=== PATIENT | female | born 1935 | race Caucasian/White ===

== ENCOUNTER 2016-08-29 17:05 | Emergency (ER) | payer MEDICARE, OTHER ==
[~2016-08-29] VITALS: Ht 165.1 cm; Wt 66.1 kg
[~2016-08-29 17:05] MED LIST: DICL75 PO; DIPH2%T PO; FURO20TA PO; QUIN20 PO; ZOCO40TA PO
[2016-08-29 17:13] VITALS: BP 170/82; PULSE 65; RESP 16; TEMP 98.2; O2SAT 96
[2016-08-29] MEDS ORDERED: ASPI81TA11 PO (17:28)
[2016-08-29] MEDS ORDERED: ACCU20TA3 PO (17:37)
[2016-08-29] MEDS ORDERED: FURO20TA PO (17:37)
[2016-08-29] MEDS ORDERED: SIMV20TA PO (17:37)
--- NOTE | 2016-08-29 17:52 | PD ---
HPI Chief Complaint: Fall Time Seen by Provider: 17:28 Travel History International Travel<30 days: No Contact w/Intl Traveler<30days: No Traveled to known affect area: No History of Present Illness HPI 81-year-old female presents to emergency department with a chief complaint of left rib pain. Patient reports she was loading groceries into her car yesterday and slipped on wet ground falling onto the left side. She reports she did not hit her head, no LOC, not on anticoagulants. Patient reports she has anterior lateral left rib pain pain is worse with with inspiration and coughing. She also reports she has bruising to the left elbow but no pain and full range of motion of the joint. Patient denies chest pain, shortness breath , abdominal pain, nausea or vomiting, or headache. Patient reports past medical history of hypertension and dyslipidemia. PFSH Past Medical History Hx Anticoagulant Therapy: Yes (ASA 81 MG DAILY) Cancer: Yes ( HODGKINS LYMPHOMA) High Cholesterol: Yes Diabetes: No Diminished Hearing: Yes ([place] BAND LEFT ) Hypertension: Yes Immunizations Current: Yes Thyroid Disease: No Tetanus Vaccination: Unknown ?: Not Menopausal: Yes : 6 Para: 6 Past Surgical History Other Surgery: Yes (KNEE AND BIOPSY OF LYMPHOMA) Social History Alcohol Use: No Tobacco Use: No (QUIT 1979) Substance Use: No Allergies-Medications (Allergen,Severity, Reaction): Coded Allergies: Penicillin (Verified Allergy, Unknown, PT STS THROAT CLOSES, 08/29/16) Reported Meds & Prescriptions Reported Meds & Active Scripts Active Reported Furosemide 20 Mg Tab 20 Mg PO DAILY Accupril (Quinapril HCl) 20 Mg Tab 20 Mg PO DAILY Simvastatin 20 Mg Tab 20 Mg PO DAILY Aspirin EC (Aspirin) 81 Mg Tabdr 81 Mg PO DAILY Review of Systems Except as stated in HPI: all other systems reviewed are Neg Physical Exam Narrative GENERAL: Alert, well-appearing, elderly female. Resting comfortably on stretcher. SKIN: Focused skin assessment warm/dry. Ecchymosis left lateral elbow HEAD: Atraumatic. Normocephalic. EYES: Pupils equal and round. No scleral icterus. No injection or drainage. ENT: No nasal bleeding or discharge. Mucous membranes pink and moist. NECK: Trachea midline. No JVD. No midline cervical spine tenderness. CARDIOVASCULAR: Regular rate and rhythm. No murmur appreciated. RESPIRATORY:Left anterior lateral rib pain. No crepitus. No accessory muscle use. Clear to auscultation. Breath sounds equal bilaterally. No wheezing rales or rhonchi. GASTROINTESTINAL: Abdomen soft, non-tender, nondistended. Hepatic and splenic margins not palpable. MUSCULOSKELETAL: No obvious deformities. No clubbing. No cyanosis. No edema. Ecchymosis left lateral elbow area is nontender. Full range of motion of the left elbow. No left elbow joint effusion. NEUROLOGICAL: Awake and alert. No obvious cranial nerve deficits. Motor grossly within normal limits. Normal speech. PSYCHIATRIC: Appropriate mood and affect; insight and judgment normal. Data Data Last Documented VS Vital Signs Date Time Temp Pulse Resp B/P Pulse Ox O2 Delivery O2 Flow Rate FiO2 08/29/16 17:13 98.2 65 16 170/82 96 Orders Ribs, Uni (W/Exp Cxr-Min 3vw) (08/29/16 ) [facility] Medical Decision Making Medical Screen Exam Complete: Yes Emergency Medical Condition: Yes Medical Record Reviewed: Yes Differential Diagnosis Rib fracture, rib contusion, left elbow contusion, mechanical fall Narrative Course 81-year-old female presents to emergency department with chief complaint left rib pain after a mechanical fall yesterday. She denies chest pain or shortness of breath. She denies head injury, no LOC, remembers the entire event. She also reports bruising to the left elbow but reports no pain and full painless range of motion of the extremity. On exam patient's head is atraumatic she has bruising to the left elbow but the area is nontender. There is no joint effusion. Patient has tenderness to left anterior lateral rib without crepitus , without ecchymosis. Breath sounds are equal bilaterally. Chest x-ray ordered and pending. Chest x-ray: No pneumothorax, no rib fracture. Diagnosis Primary Impression: Rib contusion Qualified Code: S20.212A - Rib contusion, left, initial encounter Referrals: Primary Care Physician Patient Instructions: General Instructions, Rib Contusion (ED) Disposition: 01 DISCHARGE HOME Condition: Stable Adriana Pittman August 29, 2016 17:52
--- NOTE | 2016-08-29 18:14 | RADHPO ---
EXAM DATE/TIME: 08/29/2016 17:48 [facility] COMPARISON: No previous studies available for comparison. INDICATIONS : Fall. Left mid rib pain. MEDICAL HISTORY : None. SURGICAL HISTORY : None. ENCOUNTER: Initial ACUITY: 1 day PAIN SCORE: 7/10 LOCATION: Left upper chest FINDINGS: Inspiratory chest reveals no evidence for a pneumothorax. There is good visualization of the left ribs. I do not see evidence for a left rib fracture. CONCLUSION: 1. Negative for fracture. 2. Because of the patient's habitus, a nondisplaced rib fracture would be difficult to exclude. Anthony Malagon MD FACR on August 29, 2016 at 18:08 Board Certified Radiologist. This report was verified electronically.
== END 2016-08-29 18:45 | disposition home or self-care (01) ==
LOC: PHEFT 17:05
DX: S22.32XA Fracture of one rib, left side, initial encounter for closed fracture (principal); S20.212A Contusion of left front wall of thorax, initial encounter; E78.00 Pure hypercholesterolemia, unspecified; I10 Essential (primary) hypertension; Z79.82 Long term (current) use of aspirin; Z85.71 Personal history of Hodgkin lymphoma; W01.0XXA Fall on same level from slipping, tripping and stumbling without subsequent striking against object, initial encounter; Y93.89 Activity, other specified; Y92.512 Supermarket, store or market as the place of occurrence of the external cause; Y99.8 Other external cause status
CPT/HCPCS: 71101; 99283

== ENCOUNTER 2017-01-07 18:53 | Emergency (ER) | payer MEDICARE, OTHER ==
[~2017-01-07] VITALS: Ht 165.1 cm; Wt 63.0 kg
[~2017-01-07 18:53] MED LIST changes: +ACCU20TA3 PO; +ASPI81TA11 PO; -DICL75 PO; -DIPH2%T PO; -QUIN20 PO; +SIMV20TA PO; -ZOCO40TA PO
[2017-01-07 19:00] VITALS: BP 178/74; PULSE 58; RESP 18; TEMP 98.6; O2SAT 96
--- NOTE | 2017-01-07 19:16 | PD ---
HPI Chief Complaint: Fall Time Seen by Provider: 19:10 Travel History International Travel<30 days: No Contact w/Intl Traveler<30days: No Traveled to known affect area: No History of Present Illness HPI 81-year-old female presents emergency department for evaluation of left wrist pain. Less than one hour ago patient was carrying in groceries to her home when she slipped on wet concrete falling onto an outstretched hand. She denies head injury or loss of consciousness. She is not anticoagulated. Pain is localized to the wrist only. Worse with movement and relieved with rest. Severity 4/10. She denies paresthesia or weakness in the extremity. She denies headache, visual changes, neck pain, chest pain, abdominal pain. PFSH Past Medical History Hx Anticoagulant Therapy: Yes (ASA 81 MG EVERY OTHER DAY) Cancer: Yes ( HODGKINS LYMPHOMA) Cardiovascular Problems: Yes (HTN, CHOLESTEROL) High Cholesterol: Yes Diabetes: No Diminished Hearing: Yes ([place] TRIBE LEFT ) Hypertension: Yes Immunizations Current: Yes Thyroid Disease: No Menopausal: Yes : 6 Para: 6 Past Surgical History Other Surgery: Yes (KNEE AND BIOPSY OF LYMPHOMA) Social History Alcohol Use: No Tobacco Use: No (QUIT 1979) Substance Use: No Allergies-Medications (Allergen,Severity, Reaction): Coded Allergies: penicillin G (Unverified Allergy, Unknown, PT STS THROAT CLOSES, 01/07/17) Reported Meds & Prescriptions Reported Meds & Active Scripts Active Reported Furosemide 20 Mg Tab 20 Mg PO DAILY Accupril (Quinapril HCl) 20 Mg Tab 20 Mg PO DAILY Simvastatin 20 Mg Tab 20 Mg PO DAILY Review of Systems Except as stated in HPI: all other systems reviewed are Neg Physical Exam Narrative GENERAL: Well-nourished, well-developed patient. SKIN: Focused skin assessment warm/dry. HEAD: Normocephalic. Atraumatic EYES: No scleral icterus. No injection or drainage. NECK: Supple, trachea midline. No JVD or lymphadenopathy. No midline cervical spine tenderness. CARDIOVASCULAR: Regular rate and rhythm without murmurs, gallops, or rubs. RESPIRATORY: Breath sounds equal bilaterally. No accessory muscle use. GASTROINTESTINAL: Abdomen soft, non-tender, nondistended. MUSCULOSKELETAL: No cyanosis. Left upper extremity: TTP and notable swelling to the dorsal aspect of the proximal wrist. No deformity noted. 2+ radial and ulnar pulses. Brisk cap refill. Limited range of motion due to pain. Normal sensation. Data Data Last Documented VS Vital Signs Date Time Temp Pulse Resp B/P (MAP) Pulse Ox O2 Delivery O2 Flow Rate FiO2 01/07/17 19:00 98.6 58 18 178/74 (108) 96 Orders Orders Wrist, Complete ([id number]) (01/07/17 ) Splint Or Brace Apply/Monitor (01/07/17 20:32) MDM Medical Decision Making Medical Screen Exam Complete: Yes Emergency Medical Condition: Yes Differential Diagnosis Wrist fracture versus sprain versus strain versus contusion Narrative Course 81-year-old female with left wrist pain status post fall prior to arrival. On exam she has tenderness and notable swelling to the dorsal aspect of the wrist. No deformity. 2+ distal pulses. Normal sensation. X-ray pending X-ray left upper extremity: Suspected distal radius fracture. Nondisplaced. Patient splinted by [employer]. Patient advised to make appointment with orthopedic doctor for follow-up and casting. Splint care discussed with patient. Patient verbalizes understanding and agrees to plan Diagnosis Primary Impression: Distal radius fracture, left Qualified Codes: S52.502A - Unspecified fracture of the lower end of left radius, initial encounter for closed fracture Referrals: Orthopedist Additional Instructions: The splint needs to stay in place until follow-up with the orthopedic doctor. Take the pain medication as prescribed. Ice and elevate the extremity. Return to the emergency department if he developed new or worsening symptoms such as severe increasing pain, altered sensation in the fingers, change in color of the fingers. Scripts Hydrocodone-Acetaminophen ([place]) 5-325 mg Tab 1 TAB PO Q6H Y for PAIN, #15 TAB 0 Refills Prov: Dylan Arreaga MD 01/07/17 Disposition: 01 DISCHARGE HOME Condition: Stable Adriana Pittman Jennyfer KHAN Jan 07, 2017 19:16
--- NOTE | 2017-01-07 20:06 | RADRPT ---
EXAM DATE/TIME: 01/07/2017 19:13 [facility] COMPARISON: No previous studies available for comparison. INDICATIONS : Slipped and fell on garage floor this afternoon. MEDICAL HISTORY : None. SURGICAL HISTORY : None. ENCOUNTER: Initial ACUITY: 1 day PAIN SCORE: 10/10 LOCATION: Left wrist FINDINGS: On the frontal view, there appears to be a subtle horizontal transverse fracture through the metaphys eal region of the distal radius. On the oblique view, there appears to be an area of cortical disrupt ion seen posteriorly and medially. The ulna appears intact. There is chronic calcification of the TFC C region. This chronic change at the lateral aspect of the carpal bones especially at the first carpo metacarpal joint. Vascular calcifications are seen. CONCLUSION: Suspected distal radial fracture. Pradeep Yu MD on January 07, 2017 at 20:03 Board Certified Radiologist. This report was verified electronically.
[2017-01-07] MEDS ORDERED: NORC5TAB PO (20:38)
== END 2017-01-07 20:58 | disposition home or self-care (01) ==
LOC: PHEFT 18:53
DX: S52.502A Unspecified fracture of the lower end of left radius, initial encounter for closed fracture (principal); W01.0XXA Fall on same level from slipping, tripping and stumbling without subsequent striking against object, initial encounter; I10 Essential (primary) hypertension; E78.00 Pure hypercholesterolemia, unspecified; Z79.82 Long term (current) use of aspirin; Z85.71 Personal history of Hodgkin lymphoma
CPT/HCPCS: 29125; 73110